=== PATIENT | male | born 2000 | race Caucasian/White ===

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

== ENCOUNTER 2023-11-20 02:31 | Emergency (ER) | payer OTHER ==
[2023-11-20 03:05] VITALS: BP 124/87; PULSE 91; RESP 18; TEMP 98
[2023-11-20] MEDS ORDERED: DIPH,PERTUS(ACELL)TETVAC-LF 0.5 ML VIAL IM ONE ×2 (03:05→19:45)
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
--- NOTE | 2023-11-20 08:42 | XR ---
EXAMINATION TYPE: XR hand complete RT DATE OF EXAM: 11/20/2023 COMPARISON: 08/30/2003 HISTORY: Injury and laceration TECHNIQUE: 3 view right hand FINDINGS: No acute fracture or dislocation. Soft tissues may have some mild injury over the dorsum of the hand at the metacarpal phalangeal joint space. Follow up exams can be performed 7-10 days from a cute trauma for continued pain. IMPRESSION: 1. No acute osseous abnormality. 2. Soft tissue injury dorsal metacarpal phalangeal joint space
== END 2023-11-20 03:37 | disposition left against medical advice (07) ==
LOC: EC 02:31
DX: S61.411A Laceration without foreign body of right hand, initial encounter (principal); F17.290 Nicotine dependence, other tobacco product, uncomplicated; Z53.29 Procedure and treatment not carried out because of patient's decision for other reasons; Y04.2XXA Assault by strike against or bumped into by another person, initial encounter
CPT/HCPCS: 99283

== ENCOUNTER 2023-11-20 16:52 | Emergency (ER) | payer OTHER ==
[2023-11-20 18:13] VITALS: BP 144/91; PULSE 63; RESP 16; TEMP 98.2
[2023-11-20] MEDS: HYDROmorphone 1 MG/ML 1 ML SYRINGE IVP STA (19:53)
[2023-11-20] MEDS: LIDOCAINE 1% INJ 10MG/ML (20 ML MDV) SQ ONE (21:05)
[2023-11-20] MEDS: HYDROmorphone 0.5 MG/0.5 ML SYRINGE IVP STA (23:11)
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
[2023-11-21] MEDS: ACET/COD 300 MG/30 MG STARTER PACK 6 TAB BTL PO STA (01:28)
== END 2023-11-21 01:27 | disposition home or self-care (01) ==
LOC: EC 16:52
DX: S61.216A Laceration without foreign body of right little finger without damage to nail, initial encounter (principal); F17.290 Nicotine dependence, other tobacco product, uncomplicated; X58.XXXA Exposure to other specified factors, initial encounter
CPT/HCPCS: 12044; 99283; 96365; 96375; 96376; J0690; J2001; J1170 ×2

== ENCOUNTER 2023-12-06 12:06 | Emergency (ER) | payer OTHER ==
[2023-12-06 12:21] VITALS: BP 133/84; PULSE 53; RESP 18; TEMP 98.4
--- NOTE | 2023-12-06 12:56 | ED ---
Recheck HPI - General Chief Complaint: Recheck/Abnormal Lab/Rx Stated Complaint: R hand sitches issue Time Seen by Provider: 12/06/23 12:53 Source: patient, RN notes reviewed Mode of arrival: ambulatory Limitations: no limitations - History of Present Illness Initial Comments: 23-year-old male presented to the ER with a chief complaint of a wound check. Patient was seen here on 11-20-2023 for a laceration and hand injury after punching a mirror. Patient had sutures placed at that time. Patient was discharged with Duricef but he states he was unable to afford the prescription and has not been taking any antibiotics. He also has not followed up with orthopedics as instructed. He states he is concerned laceration is now infected and does not know when sutures need to be removed. He denies any new injuries, traumas, drainage, fevers, chills, shortness of breath, chest pain, abdominal pain or peripheral edema. - Related Data Previous Rx's Medication Instructions Recorded Ibuprofen [Motrin] 600 mg PO Q8HR PRN #30 tab 11/21/23 cefaDROXiL [Duricef] 500 mg PO Q12HR 10 Days #20 cap 11/21/23 Cephalexin [Keflex] 500 mg PO Q6HR #40 cap 12/06/23 Allergies Allergy/AdvReac Type Severity Reaction Status Date / Time No Known Allergies Allergy Verified 12/06/23 12:21 Review of Systems ROS Statement: Those systems with pertinent positive or pertinent negative responses have been documented in the HPI. ROS Other: All systems not noted in ROS Statement are negative. Past Medical History Past Medical History: GERD/Reflux History of Any Multi-Drug Resistant Organisms: None Reported Past Surgical History: Orthopedic Surgery Additional Past Surgical History / Comment(s): rt arm Past Psychological History: ADD/ADHD Smoking Status: Current every day smoker, Vaper Past Alcohol Use History: Occasional Past Drug Use History: None Reported General Exam General appearance: alert, in no apparent distress Respiratory exam: Present: normal lung sounds bilaterally. Absent: respiratory distress, wheezes, rales, rhonchi, stridor Cardiovascular Exam: Present: regular rate, normal rhythm, normal heart sounds. Absent: systolic murmur, diastolic murmur, rubs, gallop, clicks Extremities exam: Present: normal inspection, normal capillary refill, other (Right fifth digit PIP joint in flexion. Patient is unable to actively extend finger.). Absent: tenderness, pedal edema, joint swelling, calf tenderness Skin exam: Present: warm, dry, intact, normal color, other (2+ right radial pulse. 2 lacerations to fifth right digit. No surrounding erythema or purulent drainage present. Sutures in place. 12cm healing laceration over dorsal hand with mild surrounding erythema. Sutures in place.). Absent: rash Course Vital Signs 12/06/23 12:16 Temperature 98.4 F Pulse Rate 53 L Respiratory 18 Rate Blood Pressure 133/84 O2 Sat by Pulse 99 Oximetry Medical Decision Making - Medical Decision Making Was pt. sent in by a medical professional or institution (, PA, AIRPORT TOWER CONTROLLER, urgent care, hospital, or fpc...) When possible be specific @ -No Did you speak to anyone other than the patient for history (EMS, parent, family, police, friend...)? What history was obtained from this source @ -No Did you review nursing and triage notes (agree or disagree)? Why? @ -I reviewed and agree with nursing and triage notes Were old charts reviewed (outside hosp., previous admission, EMS record, old EKG, old radiological studies, urgent care reports/EKG's, fpc records)? Report findings @ -Yes I reviewed ER chart and hand x-ray image/report on 11-20-2023. Patient seen for hand injury as he punched a mirror. Right hand x-ray negative for acute process. Patient refused tetanus stating his vaccination is up-to-date. Lacerations closed and patient received IV 2 g cefazolin and discharged with a prescription of Duricef. Patient instructed to follow-up with orthopedic hand surgeon. Differential Diagnosis (chest pain, altered mental status, abdominal pain women, abdominal pain men, vaginal bleeding, weakness, fever, dyspnea, syncope, headache, dizziness, GI bleed, back pain, seizure, CVA, palpatations, mental health, musculoskeletal)? @ -Laceration, abrasion, contusion, avulsion, foreign body this list is not meant to be all-inclusive EKG interpreted by me (3pts min.). @ -None X-rays interpreted by me (1pt min.). @ -None done CT interpreted by me (1pt min.). @ -None done U/S interpreted by me (1pt. min.). @ -None done What testing was considered but not performed or refused? (CT, X-rays, U/S, labs)? Why? @ -None What meds were considered but not given or refused? Why? @ -None Did you discuss the management of the patient with other professionals (professionals i.e. , PA, AIRPORT TOWER CONTROLLER, lab, RT, psych nurse, oncology social work, self pay collector, teacher, ict help desk officer, rehabilitation case coordinator)? Give summary @ -No Was smoking cessation discussed for >3mins.? @ -No Was critical care preformed (if so, how long)? @ -No Were there social determinants of health that impacted care today? How? (Homelessness, low income, unemployed, alcoholism, drug addiction, transportation, low edu. Level, literacy, decrease access to med. care, skilled nursing, rehab)? @ -No Was there de-escalation of care discussed even if they declined (Discuss DNR or withdrawal of care, Hospice)? DNR status @ -No What co-morbidities impacted this encounter? (DM, HTN, Smoking, COPD, CAD, Cancer, CVA, ARF, Chemo, Hep., AIDS, mental health diagnosis, sleep apnea, morbid obesity)? @ -None Was patient admitted / discharged? Hospital course, mention meds given and route, prescriptions, significant lab abnormalities, going to OR and other pertinent info. @ -Discharge. 23-year-old male presented to the ER with a chief complaint of a wound check. Patient seen here on 11/20/23 for hand injury/lacerations. Sutures placed at that time. Patient received 2gm IV Cefazolin and prescribed Duricef. Patient instructed to follow-up with orthopedics. Vitals upon arrival stable. Exam significant for healing lacerations to right dorsal hand. Mild surrounding erythema to 12 cm laceration. No purulent drainage. Right upper extremity neurovascular intact. Sutures removed. Due to physical exam findings and noncompliance with outpatient antibiotics, Keflex prescribed. I advised patient to follow-up with orthopedics, referral given. Strict return parameters discussed. Patient discharged in stable condition with follow-up to orthopedics. Patient verbally expressed understanding and agreement with care plan. Case discussed with ED attending, Dr. Harrell. Undiagnosed new problem with uncertain prognosis? @ -No Drug Therapy requiring intensive monitoring for toxicity (Heparin, Nitro, Insulin, Cardizem)? @ -No Were any procedures done? @ -No Diagnosis/symptom? @ -Wound check Acute, or Chronic, or Acute on Chronic? @ -Acute Uncomplicated (without systemic symptoms) or Complicated (systemic symptoms)? @ -Uncomplicated Side effects of treatment? @ -No Exacerbation, Progression, or Severe Exacerbation? @ -No Poses a threat to life or bodily function? How? (Chest pain, [place], [place], pneumonia, PE, COPD, DKA, ARF, appy, cholecystitis, CVA, Diverticulitis, Homicidal, Suicidal, threat to staff... and all critical care pts) @ -Low likelihood Disposition Clinical Impression: Encounter for wound re-check, Visit for suture removal Disposition: HOME SELF-CARE Condition: Stable Instructions (If sedation given, give patient instructions): Laceration (DC) Additional Instructions: Complete full course of Keflex and follow-up with hand account development specialist. Continue taking Tylenol and Motrin for pain control. Return to the ER for any new or worsening symptoms. Prescriptions: Cephalexin [Keflex] 500 mg PO Q6HR #40 cap Is patient prescribed a controlled substance at d/c from ED?: No Referrals: None,Stated [Primary Care Provider] - 1-2 days Sammie Chatterjee DO [Doctor of Osteopathic Medicine] - 1-2 days Time of Disposition: 12:56
== END 2023-12-06 13:34 | disposition home or self-care (01) ==
LOC: EC 12:06
DX: Z48.02 Encounter for removal of sutures (principal); F17.290 Nicotine dependence, other tobacco product, uncomplicated
CPT/HCPCS: 99282

== ENCOUNTER 2024-01-06 11:23 | Emergency (ER) | payer OTHER ==
[2024-01-06 11:27] VITALS: RESP 16
--- NOTE | 2024-01-06 12:53 | ED ---
Upper Extremity HPI - General Chief Complaint: Extremity Injury, Upper Stated Complaint: R hand pinky pain Time Seen by Provider: 01/06/24 12:43 Source: patient, RN notes reviewed Mode of arrival: ambulatory Limitations: no limitations - History of Present Illness Initial Comments: 23-year-old male presenting with right hand injury x 1.5 months ago. States he punched a mirror a month and a half ago and has had issues with his pinky finger since. States that his pinky finger is "bent" and he cannot completely extend it. He was seen in the ER for this previously where he was referred to a hand surgeon because he did not have sensation in the pinky finger. He states he was unable to get an appointment for several months with a hand surgeon, however he reports his sensation returned in the finger and is wondering if he still needs to follow-up with hand surgery. He would like to know today if we can reduce the finger. Denies any pain to the finger. - Related Data Previous Rx's Medication Instructions Recorded Ibuprofen [Motrin] 600 mg PO Q8HR PRN #30 tab 11/21/23 cefaDROXiL [Duricef] 500 mg PO Q12HR 10 Days #20 cap 11/21/23 Cephalexin [Keflex] 500 mg PO Q6HR #40 cap 12/06/23 Allergies Allergy/AdvReac Type Severity Reaction Status Date / Time No Known Allergies Allergy Verified 01/06/24 11:25 Review of Systems ROS Statement: Those systems with pertinent positive or pertinent negative responses have been documented in the HPI. ROS Other: All systems not noted in ROS Statement are negative. Past Medical History Past Medical History: GERD/Reflux History of Any Multi-Drug Resistant Organisms: None Reported Past Surgical History: Orthopedic Surgery Additional Past Surgical History / Comment(s): rt arm Past Psychological History: ADD/ADHD Smoking Status: Current every day smoker, Vaper Past Alcohol Use History: Occasional Past Drug Use History: None Reported General Exam Limitations: no limitations General appearance: alert, in no apparent distress Head exam: Present: atraumatic, normocephalic, normal inspection Respiratory exam: Present: normal lung sounds bilaterally. Absent: respiratory distress, wheezes, rales, rhonchi, stridor Cardiovascular Exam: Present: regular rate, normal rhythm, normal heart sounds. Absent: systolic murmur, diastolic murmur, rubs, gallop, clicks Right Forearm Wrist exam: Present: normal inspection, full ROM. Absent: tenderness, swelling Hand Wrist exam: Absent: normal inspection (Fifth digit of right hand fixed in flexion at the PIP joint. Passive extension of the PIP joint can be performed, however no complete active extension can be performed. No tenderness to palpation), tenderness, swelling, abrasion Vascular: Present: normal capillary refill, radial pulse. Absent: vascular compromise Neurological exam: Present: alert, oriented X3 Psychiatric exam: Present: normal affect, normal mood Skin exam: Present: warm, dry, intact, normal color. Absent: rash Course Vital Signs 01/06/24 11:25 Temperature 97.8 F Pulse Rate 58 L Respiratory 16 Rate Blood Pressure 152/109 O2 Sat by Pulse 97 Oximetry Medical Decision Making - Medical Decision Making Was pt. sent in by a medical professional or institution (, PA, PRINT WASHER, urgent care, hospital, or detention...) When possible be specific @ -No Did you speak to anyone other than the patient for history (EMS, parent, family, police, friend...)? What history was obtained from this source @ -No Did you review nursing and triage notes (agree or disagree)? Why? @ -I reviewed and agree with nursing and triage notes Were old charts reviewed (outside hosp., previous admission, EMS record, old EKG, old radiological studies, urgent care reports/EKG's, detention records)? Report findings @ -Previous ER visits reviewed Differential Diagnosis (chest pain, altered mental status, abdominal pain women, abdominal pain men, vaginal bleeding, weakness, fever, dyspnea, syncope, headache, dizziness, GI bleed, back pain, seizure, CVA, palpatations, mental health, musculoskeletal)? @ -Differential Musculoskeletal Muscular strain, contusion, ligament sprain, fracture, arthritis, septic arthritis, bursitis, cellulitis, muscle spasm, nerve compression, DVT, arterial occlusion, herpes zoster, electrolyte abnormality, tumor.... This is not meant to be in all inclusive list EKG interpreted by me (3pts min.). @ -None X-rays interpreted by me (1pt min.). @ -X-ray of right hand revealed no evidence for radiopaque foreign body, no evidence for fracture, deformity of fifth digit with hyperflexion suggests extensor injury to fifth digit CT interpreted by me (1pt min.). @ -None done U/S interpreted by me (1pt. min.). @ -None done What testing was considered but not performed or refused? (CT, X-rays, U/S, labs)? Why? @ -None What meds were considered but not given or refused? Why? @ -None Did you discuss the management of the patient with other professionals (professionals i.e. Dr., PA, PRINT WASHER, lab, RT, psych nurse, pediatric social worker, ppap coordinator, te acher, fourth officer, case assistant)? Give summary @ -No Was smoking cessation discussed for >3mins.? @ -No Was critical care preformed (if so, how long)? @ -No Were there social determinants of health that impacted care today? How? (Homelessness, low income, unemployed, alcoholism, drug addiction, transportation, low edu. Level, literacy, decrease access to med. care, group home, rehab)? @ -No Was there de-escalation of care discussed even if they declined (Discuss DNR or withdrawal of care, Hospice)? DNR status @ -No What co-morbidities impacted this encounter? (DM, HTN, Smoking, COPD, CAD, Cancer, CVA, ARF, Chemo, Hep., AIDS, mental health diagnosis, sleep apnea, morbid obesity)? @ -None Was patient admitted / discharged? Hospital course, mention meds given and route, prescriptions, significant lab abnormalities, going to OR and other pertinent info. @ -Patient was discharged. Patient was seen and evaluated for right fifth digit injury. States he punched a mirror 1.5 months ago and has been unable to extend his right pinky finger since then. Right upper extremity is neurovascularly intact. X-ray reveals no evidence for radiopaque foreign body, no evidence for fracture, deformity of fifth digit with hyperflexion suggests extensor injury to fifth. Discussed diagnosis of boutonniere's deformity with patient's. Instructed patient he must follow-up with hand surgeon. Strict retu rn parameters discussed and patient shows understanding and agrees with plan. Referral given to Dr. Robertson who is the on-call hand surgeon. Case discussed with my ED attending Dr. Simon. Patient discharged in stable condition. Undiagnosed new problem with uncertain prognosis? @ -No Drug Therapy requiring intensive monitoring for toxicity (Heparin, Nitro, Insulin, Cardizem)? @ -No Were any procedures done? @ -No Diagnosis/symptom? @ -Boutonniere deformity of right fifth digit Acute, or Chronic, or Acute on Chronic? @ -Acute Uncomplicated (without systemic symptoms) or Complicated (systemic symptoms)? @ -Uncomplicated Side effects of treatment? @ -No Exacerbation, Progression, or Severe Exacerbation? @ -No Poses a threat to life or bodily function? How? (Chest pain, [place], [place], pneumonia, PE, COPD, DKA, ARF, appy, cholecystitis, CVA, Diverticulitis, Homicidal, Suicidal, threat to staff... 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 Please return to the Emergency Department if symptoms worsen or any other concerns. Is patient prescribed a controlled substance at d/c from ED?: No Referrals: None,Stated [Primary Care Provider] - 1-2 days Ion Robertson DO [Doctor of Osteopathic Medicine] - 1-2 days Time of Disposition: 14:14
--- NOTE | 2024-01-06 13:19 | XR ---
EXAMINATION TYPE: XR hand complete RT DATE OF EXAM: 01/06/2024 1:01 PM CLINICAL INDICATION:Male, 23 years old with history of Right hand injury; [facility] COMPARISON: None TECHNIQUE: XR hand complete RT Frontal, lateral and oblique views were obtained. FINDINGS/IMPRESSION: No evidence for radiopaque foreign body. No evidence of fracture. Deformity of the fifth digit with h yper flexion suggests extensor injury to the fifth digit. Correlate with MRI physical exam.
[2024-01-06 14:19] VITALS: BP 140/89; PULSE 62; TEMP 98.1
== END 2024-01-06 14:17 | disposition home or self-care (01) ==
LOC: EC 11:23
DX: M20.021 Boutonniere deformity of right finger(s) (principal); F17.290 Nicotine dependence, other tobacco product, uncomplicated
CPT/HCPCS: 99284

== ENCOUNTER 2024-05-19 10:44 | Emergency (ER) | payer OTHER ==
[2024-05-19 10:50] VITALS: BP 128/84; PULSE 69; RESP 20; TEMP 98.6
--- NOTE | 2024-05-19 11:05 | ED ---
GI Bleed HPI - General Source: patient, RN notes reviewed Mode of arrival: ambulatory Limitations: no limitations <Shilpi Diaz - Last Filed: 05/22/24 19:17> <Calderon Sanchez - Last Filed: 05/28/24 07:38> - General Chief complaint: GI Bleed Stated complaint: Dizziness,Abd pain Time Seen by Provider: 05/19/24 11:00 - History of Present Illness Initial comments: Quick Note: This is a 24-year-old male who presents to the emergency department for hematemesis. States when he woke up this morning he started feeling dizzy and proceeded to vomit. His vomit had bright red blood mixed in with it. States that he has had a total of about 4 episodes of blood mixed in with his vomit. He has associated epigastric pain. Reports a history of upper GI bleeds in the past. (Shilpi Diaz) - Related Data Previous Rx's Medication Instructions Recorded Ibuprofen [Motrin] 600 mg PO Q8HR PRN #30 tab 11/21/23 cefaDROXiL [Duricef] 500 mg PO Q12HR 10 Days #20 cap 11/21/23 Cephalexin [Keflex] 500 mg PO Q6HR #40 cap 12/06/23 Allergies Allergy/AdvReac Type Severity Reaction Status Date / Time No Known Allergies Allergy Verified 05/19/24 10:50 Review of Systems ROS Other: All systems not noted in ROS Statement are negative. <Shilpi Diaz - Last Filed: 05/22/24 19:17> ROS Other: All systems not noted in ROS Statement are negative. <Calderon Sanchez - Last Filed: 05/28/24 07:38> ROS Statement: Those systems with pertinent positive or pertinent negative responses have been documented in the HPI. Past Medical History Past Medical History: GERD/Reflux History of Any Multi-Drug Resistant Organisms: None Reported Past Surgical History: Orthopedic Surgery Additional Past Surgical History / Comment(s): rt arm Past Psychological History: ADD/ADHD Smoking Status: Vaper Past Alcohol Use History: Occasional Past Drug Use History: Marijuana <Shilpi Diaz - Last Filed: 05/22/24 19:17> General Exam Limitations: no limitations <Shilpi Diaz - Last Filed: 05/22/24 19:17> - General Exam Comments Initial Comments: Visual Physical Exam Vital signs reviewed General: Well-appearing, nontoxic, no acute distress. Head: Normocephalic, atraumatic Eyes: PERRLA, EOMI ENT: Airway patent Chest: Nonlabored breathing Skin: No visual rash, normal skin tone Neuro: Alert and oriented 3 Musculoskeletal: No gross abnormalities (Shilpi Diaz) Course Vital Signs 05/19/24 05/19/24 10:48 12:23 Temperature 98.6 F 98.6 F Pulse Rate 69 69 Respiratory 20 20 Rate Blood Pressure 128/84 128/84 O2 Sat by Pulse 98 98 Oximetry Medical Decision Making <Shilpi Diaz - Last Filed: 05/22/24 19:17> - Medical Decision Making I performed the QuickNote portion of this chart. Signed Shilpi Diaz PA-C. Patient left AMA from the waiting room prior to full evaluation as well as completion and review of ordered testing. (Shilpi Diaz) - Lab Data Lab Results 05/19/24 05/19/24 Range/Units 11:39 11:39 PT 10.3 (10.0-12.5) sec INR 0.9 (<1.2) APTT 19.1 L (22.0-30.0) sec Plasma Lactic Acid Rohit 1.1 (0.7-2.0) mmol/L Disposition <Shilpi Diaz - Last Filed: 05/22/24 19:17> <Calderon Sanchez - Last Filed: 05/28/24 07:38> Clinical Impression: Hematemesis Disposition: LEFT AGAINST MEDICAL ADVICE Referrals: None,Stated [Primary Care Provider] - 1-2 days
[2024-05-19 12:38] LABS: INR 0.9 (<1.2); Prothrombin Time 10.3 sec (10.0-12.5)
[2024-05-19 12:49] LABS: Partial Thromboplastin Time 19.1 sec (22.0-30.0)
== END 2024-05-19 12:23 | disposition left against medical advice (07) ==
LOC: EC 10:44
DX: K92.0 Hematemesis (principal); F17.290 Nicotine dependence, other tobacco product, uncomplicated; Z53.29 Procedure and treatment not carried out because of patient's decision for other reasons
CPT/HCPCS: 36415; 83605; 85610; 85730; 99284

== ENCOUNTER 2024-10-18 09:42 | Emergency (ER) | payer OTHER ==
[2024-10-18 09:59] VITALS: RESP 20
[2024-10-18] MEDS: BACITRACIN OINT 1 EACH PACKET TOPICAL ONE (10:48)
[2024-10-18] MEDS: DIPH,PERTUS(ACELL)TETVAC-LF 0.5 ML VIAL IM ONE (10:49)
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
[2024-10-18 12:21] VITALS: BP 136/86; PULSE 70; TEMP 98.1
== END 2024-10-18 12:20 | disposition home or self-care (01) ==
LOC: EC 09:42
DX: M54.9 Dorsalgia, unspecified (principal); F17.290 Nicotine dependence, other tobacco product, uncomplicated; V89.2XXA Person injured in unspecified motor-vehicle accident, traffic, initial encounter; Y92.89 Other specified places as the place of occurrence of the external cause
CPT/HCPCS: 72131; 99284